=== PATIENT | female | born 2000 | race Caucasian/White ===

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

== ENCOUNTER 2018-11-21 12:58 | Emergency (ER) | payer MEDICAID ==
[~2018-11-21] VITALS: Ht 157.5 cm; Wt 43.5 kg
[2018-11-21 13:26] VITALS: Ht 157.5 cm; Wt 43.5 kg
[2018-11-21 15:10] VITALS: BP 105/55
== END 2018-11-21 15:11 | disposition home or self-care (01) ==
LOC: ED 12:58
DX: N39.0 Urinary tract infection, site not specified (principal); N91.2 Amenorrhea, unspecified

== ENCOUNTER 2019-04-06 11:06 | Emergency (ER) | payer SELFPAY ==
[~2019-04-06] VITALS: Ht 162.6 cm; Wt 54.4 kg
[2019-04-06 11:09] VITALS: Ht 162.6 cm; Wt 54.4 kg
[2019-04-06 14:37] VITALS: BP 124/76
== END 2019-04-06 14:37 | disposition home or self-care (01) ==
LOC: ED 11:06
DX: D17.0 Benign lipomatous neoplasm of skin and subcutaneous tissue of head, face and neck (principal); Z86.2 Personal history of diseases of the blood and blood-forming organs and certain disorders involving the immune mechanism
CPT/HCPCS: J2765

== ENCOUNTER 2019-05-06 04:04 | Emergency (ER) | payer MEDICAID ==
[~2019-05-06] VITALS: Ht 157.5 cm; Wt 46.0 kg
[2019-05-06 04:09] VITALS: Ht 157.5 cm; Wt 46.0 kg
[2019-05-06 04:54] LABS: BASOPHIL % 0.2 % (0-2); PLATELET COUNT 290 x10^3mcL (130-400)
[2019-05-06 04:55] LABS: RED CELL DISTRIBUTION WIDTH 14.6 % (11.5-14.5)
[2019-05-06 04:59] LABS: CALCIUM 8.7 mg/dL (8.5-10.1); CARBON DIOXIDE 24.6 mmol/L (21-32); CHLORIDE SERUM 103 mmol/L (98-107); CREATININE SERUM 0.7 mg/dL (0.6-1.0); GFR1 > 60 mL/min; GLUCOSE SERUM 102 mg/dL (74-106); POTASSIUM SERUM 3.4 mmol/L (3.5-5.1); SODIUM SERUM 139 mmol/L (136-145)
[2019-05-06 05:05] LABS: ALBUMIN 3.4 g/dL (3.4-5.0); ALKALINE PHOSPHATASE 68 U/L (46-116); ALT/SGPT 16 U/L (14-59); AMYLASE 66 U/L (25-115); AST/SGOT 10 U/L (15-37); BILIRUBIN TOTAL 0.23 mg/dL (0.20-1.00); LIPASE 331 IU/L (73-393)
[2019-05-06 05:06] LABS: TOTAL PROTEIN, SERUM 8.8 g/dL (6.4-8.2)
[2019-05-06 06:38] VITALS: BP 104/70
== END 2019-05-06 06:38 | disposition home or self-care (01) ==
LOC: ED 04:04
PROVIDERS: Emergency Medicine
DX: N12 Tubulo-interstitial nephritis, not specified as acute or chronic (principal); M35.00 Sjogren syndrome, unspecified
CPT/HCPCS: J0696; J1885; J2405; Q0162

== ENCOUNTER 2019-05-31 06:27 | Emergency (ER) | payer MEDICAID ==
[~2019-05-31] VITALS: Ht 157.5 cm; Wt 43.3 kg
[2019-05-31 06:44] VITALS: Ht 157.5 cm; Wt 43.3 kg
[2019-05-31 07:28] LABS: BASOPHIL % 0.2 % (0-2); PLATELET COUNT 249 x10^3mcL (130-400)
[2019-05-31 07:44] LABS: ALKALINE PHOSPHATASE 63 U/L (46-116); ALT/SGPT 13 U/L (14-59); AST/SGOT 8 U/L (15-37); BILIRUBIN TOTAL 0.22 mg/dL (0.20-1.00); CALCIUM 8.7 mg/dL (8.5-10.1); CHLORIDE SERUM 102 mmol/L (98-107); CREATININE SERUM 0.7 mg/dL (0.6-1.0); GFR1 > 60 mL/min; GLUCOSE SERUM 105 mg/dL (74-106); LIPASE 214 IU/L (73-393); SODIUM SERUM 137 mmol/L (136-145)
[2019-05-31 08:00] LABS: ALBUMIN 3.3 g/dL (3.4-5.0); TOTAL PROTEIN, SERUM 8.6 g/dL (6.4-8.2)
[2019-05-31 09:02] LABS: microscopic required? YES; urine erythrocyte 2+ (NEGATIVE)
[2019-05-31 10:26] VITALS: BP 96/54
== END 2019-05-31 10:26 | disposition home or self-care (01) ==
LOC: ED 06:27
PROVIDERS: Emergency Medicine
DX: N12 Tubulo-interstitial nephritis, not specified as acute or chronic (principal)
CPT/HCPCS: J0696; J1885; J2270; J2405; J7030

== ENCOUNTER 2019-11-12 12:39 | Emergency (ER) | payer SELFPAY ==
[~2019-11-12] VITALS: Ht 154.9 cm; Wt 43.2 kg
[2019-11-12 12:59] VITALS: BP 90/50; Ht 154.9 cm; Wt 43.2 kg
== END 2019-11-12 17:43 | disposition left against medical advice (07) ==
LOC: ED 12:39
DX: Z53.21 Procedure and treatment not carried out due to patient leaving prior to being seen by health care provider (principal)

== ENCOUNTER 2019-11-21 13:51 | Emergency (ER) | payer MEDICAID | END 2019-11-21 15:11 | disposition left against medical advice (07) | LOC: ED 13:51 | DX: Z53.21 Procedure and treatment not carried out due to patient leaving prior to being seen by health care provider (principal) ==